=== PATIENT | female | born 1945 | race Caucasian/White ===

== ENCOUNTER 2021-11-07 00:54 | Emergency (ER) | payer MEDICARE, OTHER ==
[2021-11-07 01:29] LABS: #Basophils 0.1 thou/uL (0.0-0.2); #Lymphocytes 0.7 thou/uL (1.20-3.40); #Monocytes 1.2 thou/uL (0.11-0.59); #Neutrophils 16.3 thou/uL (1.40-6.50); %Basophils 0.7 % (0.0-1.0); %Lymphocytes 3.6 % (21.0-51.0); %Monocytes 6.5 % (0.0-10.0); %Neutrophils 89.2 % (42.0-75.0); Hemoglobin 13.3 g/dL (12.0-16.0); Mean Corpuscular HGB CONC 31.6 g/dL (32.0-36.0); Mean Corpuscular Hemoglobin 28.1 pg (27.0-31.0); Mean Corpuscular Volume 88.8 fL (78.0-98.0); Platelet Count 484 thou/uL (130-400); Red Blood Cell (RBC) Count 4.74 mill/uL (4.20-5.40); White Blood Cell (WBC) Count 18.3 thou/uL (4.8-10.8)
[2021-11-07 01:45] LABS: Base Excess-Venous -1.1 mmol/L (-2.0 to 3.0); Bicarbonate (HCO3v) 27.7 mmol/L (22.0-28.0); CO2 Tension (PvCO2) 63.3 mmHg (42.0-51.0); Calcium, Ionized 1.21 mmol/L (1.15-1.33); Chloride 106 mmol/L (98-107); Hemoglobin - Calc 14.5 g/dL (12.0-16.0); Potassium 5.4 mmol/L (3.5-5.1); Sodium 143 mmol/L (138-145); T. Carbon Dioxide 29.6 mmol/L (22.0-28.0); vO2 Saturation-calc 83.1 % (60.0-85.0)
[2021-11-07 01:52] LABS: ALT (SGPT) 34 U/L (8-55); AST (SGOT) 51 U/L (5-34); Albumin 3.5 g/dL (3.4-4.8); Alkaline Phosphatase 128 U/L (40-110); Anion Gap 22 mmol/L (10-20); BUN (Urea Nitrogen) 36 mg/dL (9.8-20.1); Bilirubin, Total 0.6 mg/dL (0.2-1.2); Calc. Creatinine Clearance 0 mL/min (70-130); Carbon Dioxide 23 mmol/L (23-31); Chloride 104 mmol/L (98-107); Globulin 4.3 g/dL (2.4-3.5); Glucose 166 mg/dL (83-110); Protein, Total 7.8 g/dL (5.8-8.1); Sodium 144 mmol/L (136-145)
[2021-11-07] MEDS ORDERED: Sodium Chloride 0.9% 100 ML ONE (01:52)
[2021-11-07] MEDS ORDERED: cefTRIAXone\\ROCEPHIN 1 GM VIAL ONE (01:52)
[2021-11-07 02:51] LABS: SARS-CoV-2 NAA Rapid Test Not Detected (NotDetected)
== END 2021-11-07 02:36 | disposition short-term general hospital (02) ==
LOC: MADERS 00:54
DX: J96.90 Respiratory failure, unspecified, unspecified whether with hypoxia or hypercapnia (principal); R00.0 Tachycardia, unspecified; I45.10 Unspecified right bundle-branch block; I10 Essential (primary) hypertension; E03.9 Hypothyroidism, unspecified; E78.5 Hyperlipidemia, unspecified; I25.10 Atherosclerotic heart disease of native coronary artery without angina pectoris; G30.9 Alzheimer's disease, unspecified; F02.80 Dementia in other diseases classified elsewhere, unspecified severity, without behavioral disturbance, psychotic disturbance, mood disturbance, and anxiety; Z20.822 Contact with and (suspected) exposure to COVID-19; Z85.42 Personal history of malignant neoplasm of other parts of uterus
CPT/HCPCS: 71045; 80053; 82330; 82435; 82803; 84132; 84295; 85014; 85025; 93005; U0002; 96365; J0696; J3490